=== PATIENT | male | born 1980 | race Two or more races ===

== ENCOUNTER 2020-08-23 10:05 | Emergency (ER) | payer OTHER ==
[~2020-08-23] VITALS: Ht 180.3 cm; Wt 116.1 kg
[~2020-08-23 10:05] MED LIST: TORADOL10 MG PO
== END 2020-08-23 14:45 | disposition home or self-care (01) ==
LOC: ER 10:05
DX: N45.1 Epididymitis (principal)

== ENCOUNTER 2021-07-23 08:00 | Outpatient (CLI) | payer OTHER | END 2021-07-23 08:30 | disposition home or self-care (01) | LOC: PPH VACUNA 08:00 | PROVIDERS: ATTEND Emergency Medicine Pediatric Emergency Medicine | DX: Z23 Encounter for immunization (principal) ==